=== PATIENT | male | born 1945 | race Caucasian/White ===

== ENCOUNTER 2016-11-13 08:33 | Inpatient (IN) | payer OTHER, MEDICARE ==
[2016-11-13] MEDS ORDERED: MIDAZOLAM 5 MG/5 ML VIAL ONE (08:46)
[2016-11-13 09:10] LABS: AUTOMATED BASOPHIL 0.3 % (0-2); AUTOMATED EOSINOPHIL 2.5 % (0-5); AUTOMATED LYMPH 6.2 % (17-44); AUTOMATED MONOCYTE 5.4 % (3-10); AUTOMATED NEUTROPHIL 85.6 % (45-76); MPV 7.8 fL (7.4-10.4)
--- NOTE | 2016-11-13 09:17 | DIRPT ---
CLINICAL DATA: Post CPR, intubated EXAM: PORTABLE CHEST 1 VIEW COMPARISON: Chest x-ray dated 03/02/2016. FINDINGS: Cardiomediastinal silhouette is stable in size and configuration. Median sternotomy wires appear intact and stable in alignment. Endotracheal tube has been placed with tip well positioned approximately 1 cm above the level of the [place]. Lungs are clear, perhaps mild interstitial edema on the right. No pleural effusions seen. No pneumothorax seen. No acute osseous abnormality. IMPRESSION: 1. Endotracheal tube well positioned with tip approximately 1 cm above the level of the [place]. 2. Probable mild interstitial edema. Lungs otherwise clear Electronically Signed By: Piotr Rashid M.D. On: 11/13/2016 09:15
[2016-11-13] MEDS ORDERED: NS 1,000 ML IV ONE (09:21)
[2016-11-13] MEDS ORDERED: SUCCINYLCHOLINE 20 MG/ML INJ 10 ML VIAL IV ONE (09:21)
[2016-11-13] MEDS ORDERED: ETOMIDATE 20 MG/10 ML VIAL IV ONE ×2 (09:21→10:00)
[2016-11-13 09:24] LABS: BLOOD UREA NITROGEN 19 MG/DL (9-20); CALC CORRECTED 9.1 MG/DL (8.4-10.2); CALCIUM 8.5 MG/DL (8.4-10.2); CALCULATED OSMOLALITY 273 MOs/Kg (270-290); CHLORIDE 102 mEq/L (98-107); GLUCOSE 137 MG/DL (70-99); SODIUM LEVEL 140 mEq/L (137-146); TOTAL PROTEIN 6.8 G/DL (6.3-8.2)
[2016-11-13 09:31] LABS: LEUKOCYTES/URINE 2+ (NEGATIVE); NITRITE/URINE NEG (NEGATIVE); URINE OCCULT BLOOD 1+ (NEG/TRACE); WBC/URINE TNTC (0-2)
[2016-11-13 09:33] LABS: PARTIAL THROMB. TIME 22.7 SEC (22-35); PT-INR 1.3
--- NOTE | 2016-11-13 09:34 | EDPRACDOC ---
- General Information Information Source: [facility], [facility] Mode Of Arrival: Ambulance - History of Present Illness Onset: 8am Medications/Treatment [facility] EMS Treatment BLS,EKG IV Yes HPI: PT PRESENTS TODAY VIA EMS FROM PRISON FOR SUDDEN COLLAPSE [facility] [facility]GER. REPORTEDLY , PT WAS EATING BREAKFAST WHEN IT WAS WITNESSED BY THE STAFF THAT PT SUDDENLY THREW HIS HANDS INTO THE AIR WHILE EATING BREAKFAST AND THEN COLLAPSED TO THE FLOOR. PT RESIDES THERE D/T DEMENTIA. CURRENTLY, PT HAS EDGAR AIRWAY PLACED WITH VSS. Duration: Since Injury Presyncopal phase:: Reports: Other Prehospital care: Reports: IV, Moniter <Edie Atkins - Last Filed: 11/13/16 10:23> - History of Present Illness Medications/Treatment [facility] EMS Treatment BLS,EKG IV Yes <Walt Vazquez - Last Filed: 11/13/16 10:54> - General Information Chief Complaint: CPR Stated Complaint: POST CPR Time Seen by Provider: 11/13/16 08:52 Home Medications: Home Medications Folic Acid 1 mg PO QAM 03/05/14 Sertraline HCl [Zoloft] 150 mg PO QAM 03/05/14 Aspirin (Enteric Coated) [Ecotrin] 81 mg PO DAILY 03/07/14 Azathioprine [Imuran] 50 mg PO QID 03/07/14 Calcium Carbonate + Vitamin D [Oscal with Vitamin D] 500 mg PO BID 03/07/14 Divalproex Sodium [DEPAKOTE-ER extend release] 250 mg PO DAILY 03/07/14 Insulin Glargine [Lantus Pen] 94 units SQ QHS 03/07/14 Metoprolol Tartrate [Lopressor] 6.25 mg PO BID 03/07/14 Prednisone [Deltasone, Orasone] 10 mg PO DAILY 03/07/14 Pyridostigmine [place] [Mestinon] 60 mg PO QID 03/07/14 Atorvastatin Calcium [Lipitor] 80 mg PO HS 12/16/14 Brimonidine Tartrate 1 drop OU BID 12/16/14 Cyclobenzaprine HCl [Flexeril] 10 mg PO HS 12/16/14 Dorzolamide HCl/Timolol Maleat [Dorzolamide-Timolol Eye Drops] 1 drop OS BID 07/22 [place]-3 Fatty Acids/Fish Oil [Fish Oil 1,000 mg Softgel] 2 cap PO TID 12/16/14 Tiotropium [Spiriva Handihaler] 1 puff INH DAILY 12/16/14 Cholecalciferol (Vitamin D3) [Vitamin D3] 2,000 unit PO DAILY 09/25/15 Memantine HCl [Namenda] 5 mg PO BID 09/25/15 Tamsulosin HCl [Flomax] 0.4 mg PO BID 09/25/15 Bethanechol [Urecholine] 25 mg PO BID 03/01/16 Insulin Regular, Human [Novolin R] 0 unit SQ .SLIDING SCALE 03/01/16 Loperamide HCl [Loperamide] 2 mg PO QID PRN 03/01/16 Lorazepam 0.5 mg PO Q4H PRN 03/01/16 Trazodone HCl 50 mg PO QHS PRN 03/01/16 Allergies/Adverse Reactions: Allergies Allergy/AdvReac Type Severity Reaction Status Date / Time No Known Allergies Allergy Verified 11/13/16 09:12 ED Past Medical History - History Reviewed Yes Nurses notes reviewed and agree except as marked - Patient Medical History Neurological History: Reports: Dementia (Vascular), Myasthenia Gravis Cardiac History: Reports: Hypertension, Heart Attack, CABG Respiratory History: Reports: COPD, Pulmonary Embolism GI/ History: Reports: Kidney Stones Musculoskeletal History: Reports: Arthritis, Gout Psychological History: Reports: Anxiety Systemic History: Reports: Diabetes. Denies: Cancer Surgical History: Reports: CABG, Tonsillectomy/Adnoidectomy - Family Medical History Reports: Diabetes (Brother), Stroke (Sister). Denies: Hypertension, Cancer, Cardiac Disorders - Social Medical History Smoking Status: Former smoker <Edie Atkins - Last Filed: 11/13/16 10:23> EDM Review of Systems - Review of Systems ROS Negative Except as Marked: Yes All systems reviewed and were negative except as marked ROS Unobtainable: Yes Review of systems cannot be obtained due to the patient's medical condition <Edie Atkins - Last Filed: 11/13/16 10:23> - Physical Exam Constitutional: Other (INTUBATED) Oriented to: Unable to Test Last recorded Vital Signs: Last Vital Signs Temp Pulse 83 11/13/16 09:10 Resp 16 11/13/16 09:10 BP 83/49 L 11/13/16 09:10 Pulse Ox 100 11/13/16 09:10 Oxygen Pulse Oxygen Saturation 100 O2 Device Oxygen Flow Rate Fraction of Inspired Oxygen ( 100 FIO2) - HEENT Head: Normal Eye Exam: Other (PUPILS AT 4MM, CURRENTLY NON-REACTIVE) Oropharynx: Other (EDGAR AIRWAY PLACED; WHEN REMOVED A LARGE BOLUS OF SAUSAGE FROM POSTERIOR PHARYNX; AIRWAY OTHERWISE CLEARED) - Respiratory/Cardiovascular Respiratory: Rhonchi, Other (PT CURRENTLY BEING BAGGED) Cardiovascular: Tachycardia, Other (ABRASION NOTED TO CHEST; NO BLEEDING OR DEFORMITY; LIKELY FROM FALL, BUT THIS IS UNCLEAR) - GI Palpation: Normal Tenderness: Non tender - Musculoskeletal Back: Other (ON BACK BOARD) Extremities: Normal - Integumentary Skin: Normal Lymphatics: Normal - Neurologic Cranial Nerve: Unable to Test Cerebellar: Unable to Test <Edie Atkins - Last Filed: 11/13/16 10:23> - Physical Exam Last recorded Vital Signs: Last Vital Signs Temp Pulse 91 11/13/16 09:57 Resp 16 11/13/16 09:57 BP 169/81 11/13/16 09:57 Pulse Ox 100 11/13/16 09:57 Oxygen Pulse Oxygen Saturation 100 O2 Device Vent Oxygen Flow Rate Fraction of Inspired Oxygen ( 100 FIO2) <Walt Vazquez - Last Filed: 11/13/16 10:54> ED Procedures - Intubation Informed of risks, benefits and alternatives described.: No (PT UNCONSCIOUS) Informed Consent Signed: Unable Indication: Airway Protection Intubation Date: 11/13/16 Time of Intubation: 08:45 Pre-oxygenation completed: Yes Number of Attempts: 1 Intubation Method: Oral Endotracheal Utilized: Mac4 Blade Tube Size (cm): 7.5 Position at Lip: 23 ETCO2 Detector Positive: Yes Breath Sounds after Intubation: equal Medications: Succinylcholine Intubation Complications: no complications Post Intubation Procedure CXR ordered?: Yes (PLACEMENT GOOD) <Edie Atkins - Last Filed: 11/13/16 10:23> - Results 11/13/16 09:00 11/13/16 09:00 WBC 16.2 xk/uL (3.8-10.8) H 11/13/16 09:00 RBC 4.89 xM/uL (4.70-6.10) 11/13/16 09:00 Hgb 13.9 g/dL (14.0-18.0) L 11/13/16 09:00 Hct 42.7 % (42-52) 11/13/16 09:00 MCV 87 fL (80-94) 11/13/16 09:00 MCH 28.6 pg (27-32) 11/13/16 09:00 MCHC 32.7 g/dl (33-36) L 11/13/16 09:00 RDW 14.4 % (11.5-14.5) 11/13/16 09:00 Plt Count 293 xk/uL (130-400) 11/13/16 09:00 MPV 7.8 fL (7.4-10.4) 11/13/16 09:00 Neut % (Auto) 85.6 % (45-76) H 11/13/16 09:00 Lymph % (Auto) 6.2 % (17-44) L 11/13/16 09:00 [place] % (Auto) 5.4 % (3-10) 11/13/16 09:00 Eos % (Auto) 2.5 % (0-5) 11/13/16 09:00 Baso % (Auto) 0.3 % (0-2) 11/13/16 09:00 Absolute Neuts (auto) 13.77 xk/uL (1.7-8.2) H 11/13/16 09:00 Absolute Lymphs (auto) 0.97 xk/uL (0.65-4.75) 11/13/16 09:00 Lactic Acid 3.2 mEq/L (0.7-2.1) H 11/13/16 09:00 Lab Results 11/13/16 11/13/16 09:00 09:00 WBC 16.2 H RBC 4.89 Hgb 13.9 L Hct 42.7 MCV 87 MCH 28.6 MCHC 32.7 L RDW 14.4 Plt Count 293 MPV 7.8 Neut % (Auto) 85.6 H Lymph % (Auto) 6.2 L [place] % (Auto) 5.4 Eos % (Auto) 2.5 Baso % (Auto) 0.3 Absolute Neuts (auto) 13.77 H Absolute Lymphs (auto) 0.97 Lactic Acid 3.2 H - EKG EKG #1 EKG Time: 08:39 -: Yes EKG interpreted by me Rate: bpm: 114 [place]: Normal Rhythm: ST, PVCs Block: None Hypertrophy: None ST: Normal Comparison: 03/01/16 EKG #2 EKG Time: 09:45 -: Yes EKG interpreted by me Rate: bpm: 87 [place]: Normal Rhythm: NSR Block: None Hypertrophy: None ST: Normal Comments: HYPERKALEMIA NOTED ON LABS, BUT NO NOTED PEAKED T WAVES <Edie Atkins - Last Filed: 11/13/16 10:23> - Results 11/13/16 09:00 11/13/16 09:00 WBC 16.2 xk/uL (3.8-10.8) H 11/13/16 09:00 RBC 4.89 xM/uL (4.70-6.10) 11/13/16 09:00 Hgb 13.9 g/dL (14.0-18.0) L 11/13/16 09:00 Hct 42.7 % (42-52) 11/13/16 09:00 MCV 87 fL (80-94) 11/13/16 09:00 MCH 28.6 pg (27-32) 11/13/16 09:00 MCHC 32.7 g/dl (33-36) L 11/13/16 09:00 RDW 14.4 % (11.5-14.5) 11/13/16 09:00 Plt Count 293 xk/uL (130-400) 11/13/16 09:00 MPV 7.8 fL (7.4-10.4) 11/13/16 09:00 Neut % (Auto) 85.6 % (45-76) H 11/13/16 09:00 Lymph % (Auto) 6.2 % (17-44) L 11/13/16 09:00 [place] % (Auto) 5.4 % (3-10) 11/13/16 09:00 Eos % (Auto) 2.5 % (0-5) 11/13/16 09:00 Baso % (Auto) 0.3 % (0-2) 11/13/16 09:00 Absolute Neuts (auto) 13.77 xk/uL (1.7-8.2) H 11/13/16 09:00 Absolute Lymphs (auto) 0.97 xk/uL (0.65-4.75) 11/13/16 09:00 PT 12.9 SEC (9.2-11.2) H 11/13/16 09:00 INR 1.3 11/13/16 09:00 APTT 22.7 SEC (22-35) 11/13/16 09:00 Puncture Site Left radial 11/13/16 10:00 pH 7.260 pH UNITS (7.35-7.45) L 11/13/16 10:00 pCO2 59.0 mmHg (35-45) H 11/13/16 10:00 pO2 111.0 mmHg (80-100) H 11/13/16 10:00 HCO3 26.5 MMOL/L (22-26) H 11/13/16 10:00 Total CO2 28.3 MMOL/L (23-27) H 11/13/16 10:00 Base Excess -1.7 (+/- 2) 11/13/16 10:00 Vent Mode Ac rate 16 RATE 11/13/16 10:00 FiO2 % 100% 11/13/16 10:00 Tidal Volume 500 ML 11/13/16 10:00 Specimen Drawn By Kasgl 11/13/16 10:00 Sodium 140 mEq/L (137-146) 11/13/16 09:00 Potassium 7.2 mEq/L (3.5-5.1) H* 11/13/16 09:00 Chloride 102 mEq/L (98-107) 11/13/16 09:00 Carbon Dioxide 34 mMOL/L (22-33) H 11/13/16 09:00 Anion Gap 11 mEq/L (8-16) 11/13/16 09:00 BUN 19 MG/DL (9-20) 11/13/16 09:00 Creatinine 1.10 MG/DL (0.66-1.25) 11/13/16 09:00 Estimated GFR (MDRD) > 60 mL/min (>=60) 11/13/16 09:00 Glucose 137 MG/DL (70-99) H 11/13/16 09:00 Calculated Osmolality 273 MOs/Kg (270-290) 11/13/16 09:00 Lactic Acid 3.2 mEq/L (0.7-2.1) H 11/13/16 09:00 Calcium 8.5 MG/DL (8.4-10.2) 11/13/16 09:00 Corrected Calcium 9.1 MG/DL (8.4-10.2) 11/13/16 09:00 Total Bilirubin 0.7 MG/DL (0.2-1.3) 11/13/16 09:00 AST 108 IU/L (17-59) H 11/13/16 09:00 ALT 91 IU/L (21-72) H 11/13/16 09:00 Alkaline Phosphatase 64 IU/L (50-160) 11/13/16 09:00 Troponin I 0.02 ng/mL (<.04) 11/13/16 09:00 Total Protein 6.8 G/DL (6.3-8.2) 11/13/16 09:00 Albumin 3.4 G/DL (3.5-5.0) L 11/13/16 09:00 Urine Color Yellow 11/13/16 09:14 Urine Clarity Cldy 11/13/16 09:14 Urine pH 6.0 (5.0-8.0) 11/13/16 09:14 Ur Specific [place] 1.015 (1.003-1.035) 11/13/16 09:14 Urine Protein 2+ (NEG/TRACE) H 11/13/16 09:14 Urine Glucose (UA) 2+ (NEGATIVE) 11/13/16 09:14 Urine Ketones Neg (NEGATIVE) 11/13/16 09:14 Urine Occult Blood 1+ (NEG/TRACE) H 11/13/16 09:14 Urine Nitrite Neg (NEGATIVE) 11/13/16 09:14 Urine Bilirubin Neg (NEGATIVE) 11/13/16 09:14 Urine Urobilinogen <2.0 MG/DL (0-1) 11/13/16 09:14 Ur Leukocyte Esterase 2+ (NEGATIVE) H 11/13/16 09:14 Urine RBC 10-20 (0-2) H 11/13/16 09:14 Urine WBC Tntc (0-2) H 11/13/16 09:14 Urine WBC Clumps None (NONE) 11/13/16 09:14 Urine Bacteria 1+ (NEG/FEW) H 11/13/16 09:14 Urine Mucus Occ (NEG/OCC) 11/13/16 09:14 Urine Yeast Few (NONE) H 11/13/16 09:14 Lab Results 11/13/16 11/13/16 11/13/16 10:00 09:14 09:00 WBC RBC Hgb Hct MCV MCH MCHC RDW Plt Count MPV Neut % (Auto) Lymph % (Auto) [place] % (Auto) Eos % (Auto) Baso % (Auto) Absolute Neuts (auto) Absolute Lymphs (auto) PT 12.9 H INR 1.3 APTT 22.7 Puncture Site Left radial pH 7.260 L pCO2 59.0 H pO2 111.0 H HCO3 26.5 H Total CO2 28.3 H Base Excess -1.7 Vent Mode Ac rate 16 FiO2 % 100% Tidal Volume 500 Specimen Drawn By Kasgl Sodium Potassium Chloride Carbon Dioxide Anion Gap BUN Creatinine Estimated GFR (MDRD) Glucose Calculated Osmolality Lactic Acid Calcium Corrected Calcium Total Bilirubin AST ALT Alkaline Phosphatase Troponin I Total Protein Albumin Urine Color Yellow Urine Clarity Cldy Urine pH 6.0 Ur Specific [place] 1.015 Urine Protein 2+ H Urine Glucose (UA) 2+ Urine Ketones Neg Urine Occult Blood 1+ H Urine Nitrite Neg Urine Bilirubin Neg Urine Urobilinogen <2.0 Ur Leukocyte Esterase 2+ H Urine RBC 10-20 H Urine WBC Tntc H Urine WBC Clumps None Urine Bacteria 1+ H Urine Mucus Occ Urine Yeast Few H 11/13/16 11/13/16 11/13/16 09:00 09:00 09:00 WBC 16.2 H RBC 4.89 Hgb 13.9 L Hct 42.7 MCV 87 MCH 28.6 MCHC 32.7 L RDW 14.4 Plt Count 293 MPV 7.8 Neut % (Auto) 85.6 H Lymph % (Auto) 6.2 L [place] % (Auto) 5.4 Eos % (Auto) 2.5 Baso % (Auto) 0.3 Absolute Neuts (auto) 13.77 H Absolute Lymphs (auto) 0.97 PT INR APTT Puncture Site pH pCO2 pO2 HCO3 Total CO2 Base Excess Vent Mode FiO2 % Tidal Volume Specimen Drawn By Sodium 140 Potassium 7.2 H* Chloride 102 Carbon Dioxide 34 H Anion Gap 11 BUN 19 Creatinine 1.10 Estimated GFR (MDRD) > 60 Glucose 137 H Calculated Osmolality 273 Lactic Acid 3.2 H Calcium 8.5 Corrected Calcium 9.1 Total Bilirubin 0.7 AST 108 H ALT 91 H Alkaline Phosphatase 64 Troponin I 0.02 Total Protein 6.8 Albumin 3.4 L Urine Color Urine Clarity Urine pH Ur Specific [place] Urine Protein Urine Glucose (UA) Urine Ketones Urine Occult Blood Urine Nitrite Urine Bilirubin Urine Urobilinogen Ur Leukocyte Esterase Urine RBC Urine WBC Urine WBC Clumps Urine Bacteria Urine Mucus Urine Yeast <Walt Vazquez - Last Filed: 11/13/16 10:54> - Departure Disposition: Admit IP To This Hospital <Edie Atkins - Last Filed: 11/13/16 10:23> - Departure Yes I personally saw and evaluated the patient. Disposition: Admit IP To This Hospital Decision to Admit Time: 10:54 Decision to admit date: 11/13/16 Decision to admit: from ED - Physician Consulted Hospitalist Time Called: 10:54 Provider Called: Remington Bernardo Time Thermoscrew Operator Returned Call: 10:54 <Walt Vazquez - Last Filed: 11/13/16 10:54> - Departure Condition: Critical Final Diagnosis: Cardiac arrest with successful resuscitation, Hyperkalemia, Respiratory arrest , INTUBATION BY TRAY Aspiration into airway Qualifiers: Encounter type: initial encounter Qualified Code(s): T17.908A - Unspecified foreign body in respiratory tract, part unspecified causing other injury, initial encounter
[2016-11-13] MEDS ORDERED: DEXTROSE 25 GM/50 ML PFS IV ONE (09:36)
[2016-11-13] MEDS ORDERED: CALCIUM CHLORIDE 1000 MG/10 ML (10%) PFS IV ONE (09:44)
[2016-11-13] MEDS ORDERED: REGULAR INSULIN 100 UNITS/ML - 3 ML VIAL IV ONE (09:46)
--- NOTE | 2016-11-13 09:52 | DIRPT ---
CLINICAL DATA: 71-year-old male with altered mental status following aspiration during breakfast at the custodial earlier today EXAM: CT HEAD WITHOUT CONTRAST TECHNIQUE: Contiguous axial images were obtained from the base of the skull through the vertex without intravenous contrast. COMPARISON: Prior head CT 09/24/2014 FINDINGS: Negative for acute intracranial hemorrhage, acute infarction, mass, mass effect, hydrocephalus or midline shift. [place]-white differentiation is preserved throughout. Focal encephalomalacia left MCA territory consistent with prior infarct. No evidence of residual blood products. Extensive confluent periventricular, subcortical and deep white matter hypoattenuation most consistent with chronic microvascular ischemic white matter disease. No focal soft tissue or calvarial abnormality. Normal aeration of the visualized mastoid air cells and paranasal sinuses. Atherosclerotic calcifications present in the bilateral cavernous carotid arteries. IMPRESSION: 1. No acute intracranial abnormality. 2. Similar degree of advanced chronic microvascular ischemic white matter disease 3. Remote left MCA territory infarct. No evidence of residual blood products. Electronically Signed By: Malcolm Damon M.D. On: 11/13/2016 09:50
[2016-11-13] MEDS ORDERED: SUCCINYLCHOLINE 20 MG/1 ML INJ 10 ML MDV IV ONE (10:00)
[2016-11-13] MEDS ORDERED: CALCIUM GLUCONATE 4.65 MEQ in NS 100 ML IV ONE (10:00)
[2016-11-13 10:03] LABS: ALLEN'S TEST PASS; BEb -1.7 (+/- 2); TCO2 28.3 MMOL/L (23-27)
[2016-11-13 10:04] LABS: ABG Draw Site Left Radial; MODE AC RATE 16 RATE
[2016-11-13] MEDS ORDERED: LOPERAMIDE HCL 2 MG PO PRN (11:26)
[2016-11-13] MEDS ORDERED: FENTANYL 100 MCG/2 ML VIAL IV PRN (11:29)
[2016-11-13] MEDS ORDERED: LORAZEPAM 2 MG/ML VIAL IV PRN (11:29)
[2016-11-13] MEDS ORDERED: CHAPSTICK LIP BALM TOP PRN (11:29)
[2016-11-13] MEDS ORDERED: LOPERAMIDE 2 MG CAP PO PRN (11:47)
[2016-11-13] MEDS ORDERED: DORZOLAMIDE/TIMOLOL OPHTH SOLN 10 ML OS SCH (12:00)
[2016-11-13] MEDS ORDERED: BRIMONIDINE 0.2% OU SCH (12:00)
[2016-11-13 12:24] LABS: BLOOD UREA NITROGEN 19 MG/DL (9-20); CALCIUM 9.8 MG/DL (8.4-10.2); CALCULATED OSMOLALITY 279 MOs/Kg (270-290); CHLORIDE 106 mEq/L (98-107); GLUCOSE 103 MG/DL (70-99); SODIUM LEVEL 144 mEq/L (137-146)
[2016-11-13] MEDS: FENTANYL 2,500 MCG/250 ML BAG IV SCH (12:46)
[2016-11-13] MEDS: NS 1,000 ML IV SCH (12:47)
[2016-11-13] MEDS: PIPERACILLIN AND TAZOBACTAM 4.5 GM in D5W 100 ML IV SCH ×3 (12:47→22:36)
[2016-11-13] MEDS: METHYLPREDNISOLONE 125 MG/2 ML VIAL IV SCH ×3 (12:50→22:35)
[2016-11-13] MEDS: PANTOPRAZOLE 40 MG VIAL IV SCH (12:50)
[2016-11-13] MEDS: PYRIDOSTIGMINE 60 MG TAB PO SCH ×3 (13:06→22:34)
[2016-11-13] MEDS: CHOLECALCIFEROL 1000 UNITS TAB PO SCH (13:06)
[2016-11-13] MEDS: AZATHIOPRINE 50 MG TAB PO SCH ×3 (13:06→22:34)
[2016-11-13] MEDS: ACETAMINOPHEN 325 MG/TAB TABLET PO PRN (13:12)
[2016-11-13] MEDS: Levofloxacin 750 mg/150 ml D5W 750 MG/150 ML RTU IV SCH (13:17)
[2016-11-13 13:20] LABS: ABG Draw Site Left Radial; ALLEN'S TEST PASS; BEb 2.2 (+/- 2); TCO2 29.2 MMOL/L (23-27)
[2016-11-13 13:21] LABS: MODE AC 16 RATE
--- NOTE | 2016-11-13 15:15 | HISTPHYS ---
- Chief Complaint resp. arrest - History of Present Illness 71 yowm full-time resident of intermediate facility brought to emergency room after sustaining respiratory and subsequently cardiac arrest. According fpc information while eating sausage links for breakfast patient has choked became cyanotic call and collapsed to the floor. EMS was called Miguelito airway was placed. Patient has subsequently lost pulse and required chest compressions. Once in ED large foot bolus/such sussage link was removed from upper airways and throat he was intubated and mechanically ventilated. He has required 100% FiO2, after intubation his hemodynamics have improved. - Medical History Cardiac History: Reports: Coronary Artery Disease, Hypertension, Heart Attack, CABG, Valvular Heart Disease Respiratory History: Reports: COPD, Pneumonia, Pulmonary Embolism GI/ History: Reports: Renal Failure, Kidney Stones, Gastroesophageal Reflux, BPH Musculoskeletal History: Reports: Arthritis, Gout, Osteoarthritis Systemic History: Reports: No Significant History Neurological History: Reports: Dementia (Vascular) Psychological History: Reports: Depression, Anxiety - Surgical History Reports: CABG, Tonsillectomy/Adnoidectomy - Medictions/Allergies Allergies No Known Allergies Allergy (Verified 11/13/16 09:12) Current Medication List: Reviewed Home Medications Folic Acid 1 mg PO QAM 03/05/14 Sertraline HCl [Zoloft] 150 mg PO QAM 03/05/14 Aspirin (Enteric Coated) [Ecotrin] 81 mg PO DAILY 03/07/14 Azathioprine [Imuran] 50 mg PO QID 03/07/14 Calcium Carbonate + Vitamin D [Oscal with Vitamin D] 500 mg PO BID 03/07/14 Divalproex Sodium [DEPAKOTE-ER extend release] 250 mg PO DAILY 03/07/14 Insulin Glargine [Lantus Pen] 94 units SQ QHS 03/07/14 Metoprolol Tartrate [Lopressor] 6.25 mg PO BID 03/07/14 Prednisone [Deltasone, Orasone] 10 mg PO DAILY 03/07/14 Pyridostigmine [place] [Mestinon] 60 mg PO QID 03/07/14 Atorvastatin Calcium [Lipitor] 80 mg PO HS 12/16/14 Brimonidine Tartrate 1 drop OU BID 12/16/14 Cyclobenzaprine HCl [Flexeril] 10 mg PO HS 12/16/14 Dorzolamide HCl/Timolol Maleat [Dorzolamide-Timolol Eye Drops] 1 drop OS BID 07/22 [place]-3 Fatty Acids/Fish Oil [Fish Oil 1,000 mg Softgel] 2 cap PO TID 12/16/14 Tiotropium [Spiriva Handihaler] 1 puff INH DAILY 12/16/14 Cholecalciferol (Vitamin D3) [Vitamin D3] 2,000 unit PO DAILY 09/25/15 Memantine HCl [Namenda] 5 mg PO BID 09/25/15 Tamsulosin HCl [Flomax] 0.4 mg PO BID 09/25/15 Bethanechol [Urecholine] 25 mg PO BID 03/01/16 Insulin Regular, Human [Novolin R] 0 unit SQ .SLIDING SCALE 03/01/16 Loperamide HCl [Loperamide] 2 mg PO QID PRN 03/01/16 Lorazepam 0.5 mg PO Q4H PRN 03/01/16 Trazodone HCl 50 mg PO QHS PRN 03/01/16 - Family History Reports: Diabetes (Brother), Stroke (Sister). Denies: Hypertension, Cancer, Cardiac Disorders - Social History Travel Outside of [place] in the Last 3 Months?: No Lives: in Assisted/SNF Smoking Status: Former smoker - Review of Systems Yes Review of systems cannot be obtained due to the patient's medical condition (being intubated) Constitutional: Chills, Diaphoresis, Weakness Eyes: No Symptoms Reported Ears: No Symptoms Reported Nose: No Symptoms Reported Mouth: No Symptoms Reported Throat/Neck: No Symptoms Reported Respiratory: Cough, Shortness of Breath, Wheezing, Sputum, Dyspnea Cardiovascular: No Symptoms Reported Gastrointestinal: Constipation, Heartburn Genitourinary: Nocturia Neurological: Weakness Musculoskeletal:: Arthritis Integumentary: No Symptoms Reported Allergic/Immunologic: No Symptoms Reported Hematologic: No Symptoms Reported Endocrine: No Symptoms Reported - Physical Exam Vital Signs: Initial Vitals Pulse Rate 101 11/13/16 08:39 Respiratory Rate 21 11/13/16 08:39 Blood Pressure 136/77 11/13/16 08:39 Pulse Oxygen Saturation 100 11/13/16 08:39 - Focused CV Perfusion Exam Vital Signs: Last Vital Signs Temp 100.2 F 11/13/16 14:12 Pulse 96 11/13/16 15:06 Resp 30 H 11/13/16 12:00 BP 121/57 L 11/13/16 13:15 Pulse Ox 99 11/13/16 13:15 - Diagnostic Findings Allergies No Known Allergies Allergy (Verified 11/13/16 09:12) 11/13/16 09:00 11/13/16 12:00 Abnormal Lab Results 11/13/16 11/13/16 11/13/16 09:00 09:00 09:00 WBC 16.2 H Hgb 13.9 L MCHC 32.7 L Neut % (Auto) 85.6 H Lymph % (Auto) 6.2 L Absolute Neuts (auto) 13.77 H PT pH pCO2 pO2 HCO3 Total CO2 Base Excess Potassium 7.2 H* Carbon Dioxide 34 H Glucose 137 H Lactic Acid 3.2 H AST 108 H ALT 91 H Albumin 3.4 L Urine Protein Urine Occult Blood Ur Leukocyte Esterase Urine RBC Urine WBC Urine Bacteria Urine Yeast 11/13/16 11/13/16 11/13/16 09:00 09:14 10:00 WBC Hgb MCHC Neut % (Auto) Lymph % (Auto) Absolute Neuts (auto) PT 12.9 H pH 7.260 L pCO2 59.0 H pO2 111.0 H HCO3 26.5 H Total CO2 28.3 H Base Excess Potassium Carbon Dioxide Glucose Lactic Acid AST ALT Albumin Urine Protein 2+ H Urine Occult Blood 1+ H Ur Leukocyte Esterase 2+ H Urine RBC 10-20 H Urine WBC Tntc H Urine Bacteria 1+ H Urine Yeast Few H 11/13/16 11/13/16 12:00 13:15 WBC Hgb MCHC Neut % (Auto) Lymph % (Auto) Absolute Neuts (auto) PT pH pCO2 46.0 H pO2 HCO3 27.8 H Total CO2 29.2 H Base Excess 2.2 H Potassium Carbon Dioxide Glucose 103 H Lactic Acid AST ALT Albumin Urine Protein Urine Occult Blood Ur Leukocyte Esterase Urine RBC Urine WBC Urine Bacteria Urine Yeast Last Vital Signs Temp 100.2 F 11/13/16 14:12 Pulse 95 11/13/16 15:13 Resp 17 11/13/16 15:13 BP 116/58 L 11/13/16 15:13 Pulse Ox 100 11/13/16 15:13 Home Medications Folic Acid 1 mg PO QA 03/05/14 Sertraline HCl [Zoloft] 150 mg PO QA 03/05/14 Aspirin (Enteric Coated) [Ecotrin] 81 mg PO DAILY 03/07/14 Azathioprine [Imuran] 50 mg PO QID 03/07/14 Calcium Carbonate + Vitamin D [Oscal with Vitamin D] 500 mg PO BID 03/07/14 Divalproex Sodium [DEPAKOTE-ER extend release] 250 mg PO DAILY 03/07/14 Insulin Glargine [Lantus Pen] 94 units SQ QHS 03/07/14 Metoprolol Tartrate [Lopressor] 6.25 mg PO BID 03/07/14 Prednisone [Deltasone, Orasone] 10 mg PO DAILY 03/07/14 Pyridostigmine [place] [Mestinon] 60 mg PO QID 03/07/14 Atorvastatin Calcium [Lipitor] 80 mg PO HS 12/16/14 Brimonidine Tartrate 1 drop OU BID 12/16/14 Cyclobenzaprine HCl [Flexeril] 10 mg PO HS 12/16/14 Dorzolamide HCl/Timolol Maleat [Dorzolamide-Timolol Eye Drops] 1 drop OS BID 07/22 [place]-3 Fatty Acids/Fish Oil [Fish Oil 1,000 mg Softgel] 2 cap PO TID 12/16/14 Tiotropium [Spiriva Handihaler] 1 puff INH DAILY 12/16/14 Cholecalciferol (Vitamin D3) [Vitamin D3] 2,000 unit PO DAILY 09/25/15 Memantine HCl [Namenda] 5 mg PO BID 09/25/15 Tamsulosin HCl [Flomax] 0.4 mg PO BID 09/25/15 Bethanechol [Urecholine] 25 mg PO BID 03/01/16 Insulin Regular, Human [Novolin R] 0 unit SQ .SLIDING SCALE 03/01/16 Loperamide HCl [Loperamide] 2 mg PO QID PRN 03/01/16 Lorazepam 0.5 mg PO Q4H PRN 03/01/16 Trazodone HCl 50 mg PO QHS PRN 03/01/16 - Assessment (1) Acute respiratory failure with hypoxia J96.01 - ACUTE RESPIRATORY FAILURE WITH HYPOXIA Acute Present on Admission: Yes Continue vent support, monitor chest x-ray and ABG (2) Aspiration pneumonia J69.0 - PNEUMONITIS DUE TO INHALATION OF FOOD AND VOMIT Acute Present on Admission: Yes Qualifiers: Aspiration pneumonia type: unspecified Lung location: unspecified part of lung Patient will receive broad-spectrum antibiotics in the form of Zosyn Levaquin. Will monitor cultures and adjust antibiotics accordingly. (3) Cardiac arrest with successful resuscitation I46.9 - CARDIAC ARREST, CAUSE UNSPECIFIED Acute Present on Admission: Yes Monitor hemodynamics in ICU setting. (4) Hyperkalemia E87.5 - HYPERKALEMIA Acute Present on Admission: Yes Follow hyperkalemia protocol then reassess potassium level (5) Dementia F03.90 - UNSPECIFIED DEMENTIA WITHOUT BEHAVIORAL DISTURBANCE Acute Qualifiers: Dementia type: Alzheimer's disease Dementia behavioral disturbance: with behavioral disturbance Continue supportive care. (6) GERD (gastroesophageal reflux disease) K21.9 - GASTRO-ESOPHAGEAL REFLUX DISEASE WITHOUT ESOPHAGITIS Chronic Present on Admission: Yes Qualifiers: Esophagitis presence: without esophagitis Qualified Code(s): K21.9 - Gastro -esophageal reflux disease without esophagitis Continue PPI (7) Myasthenia gravis Chronic Present on Admission: Yes Continue high-dose steroids. (8) Dysphagia R13.10 - DYSPHAGIA, UNSPECIFIED Chronic Present on Admission: Yes Qualifiers: Dysphagia type: oropharyngeal phase Qualified Code(s): R13.12 - Dysphagia, oropharyngeal phase Speech evaluation therapy once extubated (9) DM2 (diabetes mellitus, type 2) E11.9 - TYPE 2 DIABETES MELLITUS WITHOUT COMPLICATIONS Chronic Present on Admission: Yes Qualifiers: Diabetes mellitus complication status: with neurologic complications Monitor blood sugar, cover with sliding scale insulin Case Care Discussed with: Patient, Nursing Staff, Respiratory Therapy, Matte Cutter Total Time: 90 min . Critical Care: Yes
[2016-11-13] MEDS: ENOXAPARIN 40 MG/0.4 ML PFS SQ SCH (17:08)
[2016-11-13] MEDS: CHLORHEXIDINE 0.12% ORAL SOLN 15 ML PO SCH (17:09)
[2016-11-13] MEDS: ATORVASTATIN 80 MG TAB PO SCH (22:34)
[2016-11-13] MEDS: DORZOLAMIDE/TIMOLOL OPHTH SOLN 10 ML OS SCH (22:34)
[2016-11-13] MEDS: MEMANTINE 5 MG TAB PO SCH (22:34)
[2016-11-13] MEDS: BRIMONIDINE 0.2% OU SCH (22:35)
[2016-11-13] MEDS: CHLORHEXIDINE (HIBICLENS) 4 OZ BOTTLE TOP SCH (23:03)
[2016-11-14] MEDS: NS 1,000 ML IV SCH ×2 (01:06→13:50)
[2016-11-14] MEDS: FENTANYL 2,500 MCG/250 ML BAG IV SCH ×2 (01:08→11:10)
[2016-11-14 05:04] LABS: MPV 8.7 fL (7.4-10.4)
[2016-11-14 05:14] LABS: BLOOD UREA NITROGEN 26 MG/DL (9-20); CALCIUM 8.5 MG/DL (8.4-10.2); CALCULATED OSMOLALITY 278 MOs/Kg (270-290); CHLORIDE 105 mEq/L (98-107); GLUCOSE 232 MG/DL (70-99); SODIUM LEVEL 138 mEq/L (137-146)
[2016-11-14 05:52] LABS: SEG NEUTROPHIL 92 % (45-76)
[2016-11-14] MEDS: METHYLPREDNISOLONE 125 MG/2 ML VIAL IV SCH ×3 (06:15→17:08)
[2016-11-14] MEDS: CHLORHEXIDINE 0.12% ORAL SOLN 15 ML PO SCH (06:16)
[2016-11-14] MEDS: PIPERACILLIN AND TAZOBACTAM 4.5 GM in D5W 100 ML IV SCH ×3 (06:16→17:07)
[2016-11-14] MEDS ORDERED: Magnesium Sulfate 1 gm/D5W 1 GM/100 ML RTU IV ONE (07:45)
--- NOTE | 2016-11-14 08:10 | DIRPT ---
CLINICAL DATA: Patient with respiratory distress. EXAM: PORTABLE CHEST 1 VIEW COMPARISON: Chest radiograph 11/13/2016. FINDINGS: ETT terminates in mid trachea. Multiple monitoring leads overlie the patient. Pacer pad overlies right wendy thorax. Stable cardiac and mediastinal contours status post median sternotomy. Heterogeneous opacities right mid lung. No pleural effusion or pneumothorax. IMPRESSION: ET tube terminates in mid trachea. Heterogeneous opacities in the right mid lung may represent atelectasis, aspiration or infection. Electronically Signed By: Dragan Vallecillo M.D. On: 11/14/2016 08:07
[2016-11-14] MEDS: PYRIDOSTIGMINE 60 MG TAB PO SCH ×4 (08:12→21:51)
[2016-11-14] MEDS: SERTRALINE HCL 50 MG TAB PO SCH (08:12)
[2016-11-14] MEDS: AZATHIOPRINE 50 MG TAB PO SCH ×4 (08:13→21:51)
[2016-11-14] MEDS: BRIMONIDINE 0.2% OU SCH ×2 (08:13→21:07)
[2016-11-14] MEDS: DORZOLAMIDE/TIMOLOL OPHTH SOLN 10 ML OS SCH ×2 (08:13→21:06)
[2016-11-14] MEDS: CHOLECALCIFEROL 1000 UNITS TAB PO SCH (08:13)
[2016-11-14] MEDS: MEMANTINE 5 MG TAB PO SCH ×2 (08:13→21:51)
--- NOTE | 2016-11-14 08:25 | GENMEDPROG ---
Chief Complaint: Status post respiratory arrest Subjective Note: Doing well on the ventilator this morning. He is awake. No acute events overnight, discussed with nursing staff at the bedside this morning. Notes Reviewed: Yes Events from last night noted and discussed with Clinical Staff Current Medication List: Reviewed Currently: Denies: Cough, Wheezing, Abdominal Pain, Fever/Chills, Chest Pain DVT Prophylaxis: Yes - Physical Examination Vital Signs and I&O: Last Vital Signs Temp 100.5 F 11/13/16 19:00 Pulse 69 11/14/16 07:20 Resp 15 11/14/16 06:00 BP 104/56 L 11/14/16 06:00 Pulse Ox 98 11/14/16 06:00 Oxygen Pulse Oxygen Saturation 98 O2 Device Vent Oxygen Flow Rate Fraction of Inspired Oxygen ( 80 FIO2) Intake & Output 11/12/16 11/13/16 11/14/16 11/15/16 06:59 06:59 06:59 06:59 Intake Total 3114 Output Total 1175 Balance 1939 Patient's weight 86.001 kg General: Alert, Mild distress HEENT: EOMI (Sclera white) Neck: Normal Trachea alignment, Normal inspection Lymphatics: Normal Respiratory: Rhonchi, Other (PT CURRENTLY BEING BAGGED) Cardiovascular: Regular rate, No Gallops,Rubs/Murmurs GI: Normal bowel sounds, Soft, Non tender (non distended) Extremities/Musculoskeletal: Other (Normal Tone). negative: Edema, Cyanosis Patient is intubated. Awake but not following commands. His baseline mental status is unclear. Lab/DI/Studies Reviewed: Laboratory Tests 11/14/16 11/14/16 04:35 04:35 WBC 17.6 H Hgb 11.8 L D Potassium 4.6 BUN 26 H Creatinine 1.00 Magnesium 1.50 L - Assessment (1) Acute respiratory failure with hypoxia Acute J96.01 - ACUTE RESPIRATORY FAILURE WITH HYPOXIA Comment/Plan: Respiratory failure due to severe aspiration leading to arrest. Continue ventilator support today. Continue empiric IV antibiotics Levaquin and Zosyn for aspiration. Discussed with nursing at the bedside who will get in touch with respiratory therapy. Will wean down oxygen as able, and consider CPAP trial later this morning to exercise the patient. Do not intend on extubating today. (2) Aspiration into airway Acute T17.908A - UNSP FB IN RESP TRACT, PART UNSP CAUSING OTH INJURY, INIT Qualifiers: Encounter type: initial encounter Qualified Code(s): T17.908A - Unspecified foreign body in respiratory tract, part unspecified causing other injury, initial encounter (3) Aspiration pneumonia Acute J69.0 - PNEUMONITIS DUE TO INHALATION OF FOOD AND VOMIT Qualifiers: Aspiration pneumonia type: unspecified Lung location: unspecified part of lung Comment/Plan: Patient will receive broad-spectrum antibiotics in the form of Zosyn Levaquin. Will monitor cultures and adjust antibiotics accordingly. (4) Cardiac arrest with successful resuscitation Acute I46.9 - CARDIAC ARREST, CAUSE UNSPECIFIED Comment/Plan: Monitor hemodynamics in ICU setting. Currently hemodynamically stable. (5) Dementia Acute F03.90 - UNSPECIFIED DEMENTIA WITHOUT BEHAVIORAL DISTURBANCE Qualifiers: Dementia type: Alzheimer's disease Dementia behavioral disturbance: with behavioral disturbance Comment/Plan: Continue supportive care, he is awake and calm this morning. Not following commands, but is moving all extremities and looking around the room spontaneously. His baseline mental status is unclear. Dementia may be playing a role in his not following specific commands. (6) Hyperkalemia Acute E87.5 - HYPERKALEMIA Comment/Plan: Treated per hyperkalemia protocol, now improved and normal range this morning. (7) DM2 (diabetes mellitus, type 2) Chronic E11.9 - TYPE 2 DIABETES MELLITUS WITHOUT COMPLICATIONS Qualifiers: Diabetes mellitus complication status: with neurologic complications Comment/Plan: Monitor blood sugar, cover with sliding scale insulin (8) GERD (gastroesophageal reflux disease) Chronic K21.9 - GASTRO-ESOPHAGEAL REFLUX DISEASE WITHOUT ESOPHAGITIS Qualifiers: Esophagitis presence: without esophagitis Qualified Code(s): K21.9 - Gastro -esophageal reflux disease without esophagitis Comment/Plan: Continue PPI (9) Myasthenia gravis Chronic Comment/Plan: Continue high-dose steroids. (10) CVA (cerebral vascular accident) Acute I63.9 - CEREBRAL INFARCTION, UNSPECIFIED - Plan In summary this patient is acutely and critically ill. The patient requires treatment of vital organ failure and measures to prevent further life- threatening deterioration of the above conditions. I personally reviewed and ordered lab testing, as well as imaging. I reviewed old medical records from previous hospitalizations as available, and spent the time mentioned below in critical care of this patient including counseling and coordination of care. Case Care Discussed with: Nursing Staff Total Time: 65
[2016-11-14] MEDS ORDERED: Non-Formulary Medication ITEM (Cholecalciferol (Vitamin D3) [Vitamin D3] 2,000 UNIT) PO SCH (09:00)
[2016-11-14] MEDS: PANTOPRAZOLE 40 MG VIAL IV SCH (12:05)
[2016-11-14] MEDS ORDERED: GLUCAGON 1 MG VIAL SQ PRN (13:10)
[2016-11-14] MEDS ORDERED: DEXTROSE 25 GM/50 ML PFS IV PRN (13:10)
[2016-11-14] MEDS ORDERED: GLUCOSE (ORAL GEL) 15 GM TUBE PO PRN (13:10)
[2016-11-14] MEDS: Levofloxacin 750 mg/150 ml D5W 750 MG/150 ML RTU IV SCH (13:50)
[2016-11-14] MEDS ORDERED: Vaccine Screening Complete SCH (17:00)
[2016-11-14] MEDS: ENOXAPARIN 40 MG/0.4 ML PFS SQ SCH (17:07)
[2016-11-14] MEDS: REGULAR INSULIN 100 UNITS/ML - 3 ML VIAL SQ SCH ×2 (17:49→21:04)
[2016-11-14] MEDS: ATORVASTATIN 80 MG TAB PO SCH (21:51)
[2016-11-15] MEDS: METHYLPREDNISOLONE 125 MG/2 ML VIAL IV SCH ×3 (00:15→18:34)
[2016-11-15] MEDS: PIPERACILLIN AND TAZOBACTAM 4.5 GM in D5W 100 ML IV SCH ×5 (00:16→23:46)
[2016-11-15] MEDS: NS 1,000 ML IV SCH ×2 (02:15→12:53)
[2016-11-15] MEDS: CHLORHEXIDINE (HIBICLENS) 4 OZ BOTTLE TOP SCH ×2 (05:16→20:36)
[2016-11-15 05:20] LABS: MPV 8.5 fL (7.4-10.4)
[2016-11-15 05:34] LABS: BLOOD UREA NITROGEN 38 MG/DL (9-20); CALCIUM 8.3 MG/DL (8.4-10.2); CALCULATED OSMOLALITY 287 MOs/Kg (270-290); CHLORIDE 108 mEq/L (98-107); GLUCOSE 217 MG/DL (70-99); SODIUM LEVEL 141 mEq/L (137-146)
[2016-11-15] MEDS: REGULAR INSULIN 100 UNITS/ML - 3 ML VIAL SQ SCH ×5 (05:59→23:42)
[2016-11-15] MEDS: AZATHIOPRINE 50 MG TAB PO SCH ×4 (07:57→20:54)
[2016-11-15] MEDS: PYRIDOSTIGMINE 60 MG TAB PO SCH ×4 (07:57→20:54)
[2016-11-15] MEDS ORDERED: PREDNISONE 20 MG TAB PO SCH (08:00)
[2016-11-15] MEDS: MEMANTINE 5 MG TAB PO SCH ×2 (08:01→20:55)
[2016-11-15] MEDS: SERTRALINE HCL 50 MG TAB PO SCH (08:02)
[2016-11-15] MEDS: BRIMONIDINE 0.2% OU SCH ×2 (08:06→20:51)
[2016-11-15] MEDS: DORZOLAMIDE/TIMOLOL OPHTH SOLN 10 ML OS SCH ×2 (08:11→20:58)
--- NOTE | 2016-11-15 08:39 | GENMEDPROG ---
Chief Complaint: Respiratory arrest Subjective Note: No acute events overnight, resting comfortably this morning. Alert, follows commands but nonverbal currently. Later said 1 word to the nurse this morning. Notes Reviewed: Yes Events from last night noted and discussed with Clinical Staff Current Medication List: Reviewed Currently: Denies: Cough, Wheezing, Abdominal Pain, Fever/Chills, Chest Pain DVT Prophylaxis: Yes - Physical Examination Vital Signs and I&O: Last Vital Signs Temp 98.4 F 11/15/16 07:00 Pulse 75 11/15/16 08:17 Resp 16 11/15/16 07:00 BP 169/74 11/15/16 07:00 Pulse Ox 96 11/15/16 07:00 Oxygen Pulse Oxygen Saturation 96 O2 Device Nasal Cannula Oxygen Flow Rate 1 Fraction of Inspired Oxygen ( 40 FIO2) Intake & Output 11/13/16 11/14/16 11/15/16 11/16/16 06:59 06:59 06:59 06:59 Intake Total 3114 2466 Output Total 1175 1450 Balance 1939 1016 Patient's weight 86.001 kg 86.001 kg General: Alert, Mild distress HEENT: EOMI (Sclera white) Neck: Normal Trachea alignment, Normal inspection Lymphatics: Normal Respiratory: Rhonchi, Wheezes Cardiovascular: Regular rate, No Gallops,Rubs/Murmurs GI: Normal bowel sounds, Soft, Non tender (non distended) Extremities/Musculoskeletal: Other (Normal Tone). negative: Edema, Cyanosis Psych/Mental Status: Appropriate, Normal Affect, Cooperative. negative: Agitated, Anxious Lab/DI/Studies Reviewed: Laboratory Tests 11/15/16 11/15/16 05:12 05:12 WBC 16.9 H Hgb 11.2 L Potassium 4.3 BUN 38 H Creatinine 1.00 - Assessment (1) Acute respiratory failure with hypoxia Acute J96.01 - ACUTE RESPIRATORY FAILURE WITH HYPOXIA Comment/Plan: Respiratory failure due to severe aspiration leading to arrest. He was extubated yesterday afternoon. Continue empiric IV antibiotics Levaquin and Zosyn for aspiration. (2) Aspiration into airway Acute T17.908A - UNSP FB IN RESP TRACT, PART UNSP CAUSING OTH INJURY, INIT Qualifiers: Encounter type: initial encounter Qualified Code(s): T17.908A - Unspecified foreign body in respiratory tract, part unspecified causing other injury, initial encounter (3) Aspiration pneumonia Acute J69.0 - PNEUMONITIS DUE TO INHALATION OF FOOD AND VOMIT Qualifiers: Aspiration pneumonia type: unspecified Lung location: unspecified part of lung Comment/Plan: Patient will receive broad-spectrum antibiotics in the form of Zosyn Levaquin. Will monitor cultures and adjust antibiotics accordingly. (4) Cardiac arrest with successful resuscitation Acute I46.9 - CARDIAC ARREST, CAUSE UNSPECIFIED Comment/Plan: Currently hemodynamically stable. (5) Dementia Acute F03.90 - UNSPECIFIED DEMENTIA WITHOUT BEHAVIORAL DISTURBANCE Qualifiers: Dementia type: Alzheimer's disease Dementia behavioral disturbance: with behavioral disturbance Comment/Plan: Continue supportive care, he is awake and calm this morning. Not following commands, but is moving all extremities and looking around the room spontaneously. His baseline mental status is unclear. Dementia may be playing a role in his not following specific commands. (6) Hyperkalemia Acute E87.5 - HYPERKALEMIA Comment/Plan: Treated per hyperkalemia protocol, now improved and normal range this morning. (7) DM2 (diabetes mellitus, type 2) Chronic E11.9 - TYPE 2 DIABETES MELLITUS WITHOUT COMPLICATIONS Qualifiers: Diabetes mellitus complication status: with neurologic complications Comment/Plan: Monitor blood sugar, cover with sliding scale insulin (8) GERD (gastroesophageal reflux disease) Chronic K21.9 - GASTRO-ESOPHAGEAL REFLUX DISEASE WITHOUT ESOPHAGITIS Qualifiers: Esophagitis presence: without esophagitis Qualified Code(s): K21.9 - Gastro -esophageal reflux disease without esophagitis Comment/Plan: Continue PPI (9) Myasthenia gravis Chronic Comment/Plan: Patient normally on 10 mg p.o. daily of prednisone, was given very high dose IV steroids, will but this down today. (10) CVA (cerebral vascular accident) Acute I63.9 - CEREBRAL INFARCTION, UNSPECIFIED - Plan Overall this patient is improved and stable. Was seen by speech therapy yesterday, unable to follow commands dose failure evaluation. Currently he is being kept NPO, they will be re-evaluate today. In the meantime, he is being maintained on IV medications. Case Care Discussed with: Patient, Nursing Staff Total Time: 49
[2016-11-15] MEDS: PANTOPRAZOLE 40 MG VIAL IV SCH (12:52)
[2016-11-15] MEDS: CHOLECALCIFEROL 1000 UNITS TAB PO SCH (12:52)
[2016-11-15] MEDS: Levofloxacin 750 mg/150 ml D5W 750 MG/150 ML RTU IV SCH (13:36)
[2016-11-15] MEDS: ACETAMINOPHEN 325 MG/TAB TABLET PO PRN (18:16)
[2016-11-15] MEDS: ENOXAPARIN 40 MG/0.4 ML PFS SQ SCH (18:37)
[2016-11-15] MEDS: ATORVASTATIN 80 MG TAB PO SCH (20:54)
[2016-11-16 04:15] LABS: MPV 8.7 fL (7.4-10.4)
[2016-11-16 04:31] LABS: BLOOD UREA NITROGEN 30 MG/DL (9-20); CALCIUM 8.5 MG/DL (8.4-10.2); CALCULATED OSMOLALITY 295 MOs/Kg (270-290); CHLORIDE 111 mEq/L (98-107); GLUCOSE 237 MG/DL (70-99); SODIUM LEVEL 146 mEq/L (137-146)
[2016-11-16] MEDS: NS 1,000 ML IV SCH ×3 (05:30→18:08)
[2016-11-16] MEDS: REGULAR INSULIN 100 UNITS/ML - 3 ML VIAL SQ SCH ×4 (05:31→19:53)
[2016-11-16] MEDS: METHYLPREDNISOLONE 125 MG/2 ML VIAL IV SCH ×2 (05:33→18:08)
[2016-11-16] MEDS: PIPERACILLIN AND TAZOBACTAM 4.5 GM in D5W 100 ML IV SCH ×4 (05:34→23:34)
[2016-11-16] MEDS: MEMANTINE 5 MG TAB PO SCH ×2 (08:26→19:36)
[2016-11-16] MEDS: SERTRALINE HCL 50 MG TAB PO SCH (08:26)
[2016-11-16] MEDS: AZATHIOPRINE 50 MG TAB PO SCH ×4 (08:27→19:36)
[2016-11-16] MEDS: PYRIDOSTIGMINE 60 MG TAB PO SCH ×4 (08:27→19:36)
[2016-11-16] MEDS: DORZOLAMIDE/TIMOLOL OPHTH SOLN 10 ML OS SCH ×2 (08:27→19:57)
[2016-11-16] MEDS: BRIMONIDINE 0.2% OU SCH ×2 (08:27→19:52)
--- NOTE | 2016-11-16 10:19 | GENMEDPROG ---
Chief Complaint: Aspiration pneumonia Subjective Note: Doing well, he is slightly verbal this morning which is an improvement. No acute events overnight. Notes Reviewed: Yes Events from last night noted and discussed with Clinical Staff Current Medication List: Reviewed Currently: Denies: Cough, Wheezing, Abdominal Pain, Fever/Chills, Chest Pain DVT Prophylaxis: Yes - Physical Examination Vital Signs and I&O: Last Vital Signs Temp 98.1 F 11/16/16 08:00 Pulse 67 11/16/16 08:00 Resp 20 11/16/16 08:00 BP 190/70 H 11/16/16 08:00 Pulse Ox 92 11/16/16 08:00 Oxygen Pulse Oxygen Saturation 92 O2 Device Room Air Oxygen Flow Rate 1 Fraction of Inspired Oxygen ( 40 FIO2) Intake & Output 11/14/16 11/15/16 11/16/16 11/17/16 06:59 06:59 06:59 06:59 Intake Total 3114 2466 2150 Output Total 1175 1450 2350 Balance 1939 1016 -200 Patient's weight 86.001 kg 86.001 kg 81.675 kg General: Alert, Mild distress HEENT: EOMI (Sclera white) Neck: Normal Trachea alignment, Normal inspection Lymphatics: Normal Respiratory: Rhonchi, Wheezes Cardiovascular: Regular rate, No Gallops,Rubs/Murmurs GI: Normal bowel sounds, Soft, Non tender (non distended) Extremities/Musculoskeletal: Other (Normal Tone). negative: Edema, Cyanosis Psych/Mental Status: Appropriate, Normal Affect, Cooperative. negative: Agitated, Anxious, Sedated, Somnolent Lab/DI/Studies Reviewed: Laboratory Tests 11/16/16 11/16/16 11/16/16 03:40 03:40 05:29 Hgb 10.8 L Potassium 3.8 BUN 30 H Creatinine 1.00 POC Capillary Glucose 201 H - Assessment (1) Acute respiratory failure with hypoxia Acute J96.01 - ACUTE RESPIRATORY FAILURE WITH HYPOXIA Comment/Plan: Respiratory failure due to severe aspiration leading to arrest. He was extubated on November 14 and transferred out of the ICU the next day. Continue empiric IV antibiotics Levaquin and Zosyn for aspiration. (2) Aspiration into airway Acute T17.908A - UNSP FB IN RESP TRACT, PART UNSP CAUSING OTH INJURY, INIT Qualifiers: Encounter type: initial encounter Qualified Code(s): T17.908A - Unspecified foreign body in respiratory tract, part unspecified causing other injury, initial encounter (3) Aspiration pneumonia Acute J69.0 - PNEUMONITIS DUE TO INHALATION OF FOOD AND VOMIT Qualifiers: Aspiration pneumonia type: unspecified Lung location: unspecified part of lung Comment/Plan: Patient will receive broad-spectrum antibiotics in the form of Zosyn Levaquin. Will monitor cultures and adjust antibiotics accordingly. (4) Cardiac arrest with successful resuscitation Acute I46.9 - CARDIAC ARREST, CAUSE UNSPECIFIED Comment/Plan: Currently hemodynamically stable. (5) Dementia Acute F03.90 - UNSPECIFIED DEMENTIA WITHOUT BEHAVIORAL DISTURBANCE Qualifiers: Dementia type: Alzheimer's disease Dementia behavioral disturbance: with behavioral disturbance Comment/Plan: Continue supportive care, he is awake and calm this morning. Not following commands, but is moving all extremities and looking around the room spontaneously. His baseline mental status is unclear. Dementia may be playing a role in his not following specific commands. He is speaking this morning which is an improvement, but is quite slurred. (6) Hyperkalemia Acute E87.5 - HYPERKALEMIA Comment/Plan: Treated per hyperkalemia protocol, now improved and normal range this morning. (7) DM2 (diabetes mellitus, type 2) Chronic E11.9 - TYPE 2 DIABETES MELLITUS WITHOUT COMPLICATIONS Qualifiers: Diabetes mellitus complication status: with neurologic complications Comment/Plan: Monitor blood sugar, cover with sliding scale insulin (8) GERD (gastroesophageal reflux disease) Chronic K21.9 - GASTRO-ESOPHAGEAL REFLUX DISEASE WITHOUT ESOPHAGITIS Qualifiers: Esophagitis presence: without esophagitis Qualified Code(s): K21.9 - Gastro -esophageal reflux disease without esophagitis Comment/Plan: Continue PPI (9) Myasthenia gravis Chronic Comment/Plan: Patient normally on 10 mg p.o. daily of prednisone, was given very high dose IV steroids, will but this down today. (10) CVA (cerebral vascular accident) Acute I63.9 - CEREBRAL INFARCTION, UNSPECIFIED Total Time: 40
[2016-11-16] MEDS: METOPROLOL TARTRATE 25 MG TAB PO SCH ×2 (11:45→19:38)
[2016-11-16] MEDS: CHOLECALCIFEROL 1000 UNITS TAB PO SCH (13:12)
[2016-11-16] MEDS: PANTOPRAZOLE 40 MG VIAL IV SCH (13:13)
[2016-11-16] MEDS ORDERED: LORAZEPAM 0.5 MG TAB PO PRN (13:57)
[2016-11-16] MEDS ORDERED: VARIBAR NECTAR 40% BARIUM 240 ML ONE (13:58)
[2016-11-16] MEDS ORDERED: VARIBAR THIN 40% BARIUM 250 ML ONE (13:58)
[2016-11-16] MEDS ORDERED: VARIBAR HONEY 40% BARIUM 250 ML ONE (13:58)
[2016-11-16] MEDS ORDERED: GLARGINE INSULIN (LANTUS) 100 UNITS/ML PEN SQ SCH (15:00)
[2016-11-16] MEDS: Levofloxacin 750 mg/150 ml D5W 750 MG/150 ML RTU IV SCH (15:35)
[2016-11-16] MEDS: ENOXAPARIN 40 MG/0.4 ML PFS SQ SCH (18:08)
[2016-11-16] MEDS: CYCLOBENZAPRINE 10 MG TAB PO SCH (19:35)
[2016-11-16] MEDS: ATORVASTATIN 80 MG TAB PO SCH (19:36)
[2016-11-16] MEDS: DIVALPROEX SODIUM 250 MG PO SCH (19:41)
[2016-11-16] MEDS: TAMSULOSIN HCL 0.4 MG CAP PO SCH (19:41)
[2016-11-16] MEDS: GLARGINE INSULIN (LANTUS) 100 UNITS/ML PEN SQ SCH (19:54)
[2016-11-16] MEDS: hydrALAZINE 20 MG/ML VIAL IV PRN (19:55)
[2016-11-16] MEDS: IPRATROPIUM 0.02% 2.5 ML NEB NEB SCH (20:05)
[2016-11-17] MEDS: IPRATROPIUM 0.02% 2.5 ML NEB NEB SCH ×4 (02:10→19:51)
[2016-11-17] MEDS: REGULAR INSULIN 100 UNITS/ML - 3 ML VIAL SQ SCH ×4 (05:09→22:18)
[2016-11-17] MEDS: METHYLPREDNISOLONE 125 MG/2 ML VIAL IV SCH ×2 (05:12→17:04)
[2016-11-17] MEDS: NS 1,000 ML IV SCH ×3 (05:13→17:10)
[2016-11-17] MEDS: hydrALAZINE 20 MG/ML VIAL IV PRN ×2 (05:14→18:46)
[2016-11-17] MEDS: PIPERACILLIN AND TAZOBACTAM 4.5 GM in D5W 100 ML IV SCH ×3 (05:15→17:04)
[2016-11-17 05:37] LABS: BLOOD UREA NITROGEN 21 MG/DL (9-20); CALCIUM 8.1 MG/DL (8.4-10.2); CALCULATED OSMOLALITY 290 MOs/Kg (270-290); CHLORIDE 112 mEq/L (98-107); GLUCOSE 246 MG/DL (70-99); SODIUM LEVEL 145 mEq/L (137-146)
[2016-11-17] MEDS: FOLIC ACID 1 MG TAB PO SCH (08:39)
[2016-11-17] MEDS: METOPROLOL TARTRATE 25 MG TAB PO SCH ×2 (08:39→21:34)
[2016-11-17] MEDS: MEMANTINE 5 MG TAB PO SCH ×2 (08:39→21:34)
[2016-11-17] MEDS: TAMSULOSIN HCL 0.4 MG CAP PO SCH ×2 (08:39→21:33)
[2016-11-17] MEDS: SERTRALINE HCL 50 MG TAB PO SCH (08:39)
[2016-11-17] MEDS: PYRIDOSTIGMINE 60 MG TAB PO SCH ×4 (08:40→21:33)
[2016-11-17] MEDS: DORZOLAMIDE/TIMOLOL OPHTH SOLN 10 ML OS SCH ×2 (08:40→21:36)
[2016-11-17] MEDS: BRIMONIDINE 0.2% OU SCH ×2 (08:40→21:36)
[2016-11-17] MEDS: AZATHIOPRINE 50 MG TAB PO SCH ×4 (08:40→21:33)
[2016-11-17] MEDS ORDERED: TIOTROPIUM INH SCH (09:00)
--- NOTE | 2016-11-17 10:09 | GENMEDPROG ---
Chief Complaint: Respiratory arrest from aspiration Subjective Note: Doing well, no acute complaints. More talkative once again today. Currently: Denies: Cough, Wheezing, Abdominal Pain, Fever/Chills, Chest Pain DVT Prophylaxis: Yes - Physical Examination Vital Signs and I&O: Last Vital Signs Temp 98.1 F 11/17/16 07:13 Pulse 79 11/17/16 07:13 Resp 18 11/17/16 07:13 BP 153/65 11/17/16 07:13 Pulse Ox 95 11/17/16 07:13 Oxygen Pulse Oxygen Saturation 95 O2 Device Room Air Oxygen Flow Rate 1 Fraction of Inspired Oxygen ( 40 FIO2) Intake & Output 11/15/16 11/16/16 11/17/16 11/18/16 06:59 06:59 06:59 06:59 Intake Total 2466 2150 2746 Output Total 1450 2350 4650 Balance 0601 -176 -0187 Patient's weight 86.001 kg 81.675 kg 82.157 kg General: Alert, Mild distress HEENT: EOMI (Sclera white) Neck: Normal Trachea alignment, Normal inspection Lymphatics: Normal Respiratory: Rhonchi, Wheezes Cardiovascular: Regular rate, No Gallops,Rubs/Murmurs GI: Normal bowel sounds, Soft, Non tender (non distended) Extremities/Musculoskeletal: Other (Normal Tone). negative: Edema, Cyanosis Psych/Mental Status: Appropriate, Normal Affect, Cooperative. negative: Agitated, Anxious, Sedated, Somnolent Lab/DI/Studies Reviewed: Laboratory Tests 11/17/16 11/17/16 04:00 04:00 WBC 12.6 H Hgb 11.4 L Potassium 3.9 BUN 21 H Creatinine 0.80 - Assessment (1) Acute respiratory failure with hypoxia Acute J96.01 - ACUTE RESPIRATORY FAILURE WITH HYPOXIA Comment/Plan: Respiratory failure due to severe aspiration leading to arrest. He was extubated on November 14 and transferred out of the ICU the next day. Continue empiric IV antibiotics Levaquin and Zosyn for aspiration. Currently doing well on nasal cannula oxygen. (2) Aspiration into airway Acute T17.908A - UNSP FB IN RESP TRACT, PART UNSP CAUSING OTH INJURY, INIT Qualifiers: Encounter type: initial encounter Qualified Code(s): T17.908A - Unspecified foreign body in respiratory tract, part unspecified causing other injury, initial encounter (3) Aspiration pneumonia Acute J69.0 - PNEUMONITIS DUE TO INHALATION OF FOOD AND VOMIT Qualifiers: Aspiration pneumonia type: unspecified Lung location: unspecified part of lung Comment/Plan: Patient will receive broad-spectrum antibiotics in the form of Zosyn Levaquin. Will monitor cultures and adjust antibiotics accordingly. (4) Cardiac arrest with successful resuscitation Acute I46.9 - CARDIAC ARREST, CAUSE UNSPECIFIED Comment/Plan: Currently hemodynamically stable. (5) Dementia Acute F03.90 - UNSPECIFIED DEMENTIA WITHOUT BEHAVIORAL DISTURBANCE Qualifiers: Dementia type: Alzheimer's disease Dementia behavioral disturbance: with behavioral disturbance Comment/Plan: Continue supportive care, he is awake and calm this morning. Not following commands, but is moving all extremities and looking around the room spontaneously. His baseline mental status is unclear. Dementia may be playing a role in his not following specific commands. He is speaking this morning which is an improvement, but is quite slurred. (6) Hyperkalemia Acute E87.5 - HYPERKALEMIA Comment/Plan: Treated per hyperkalemia protocol, now improved and normal range this morning. (7) DM2 (diabetes mellitus, type 2) Chronic E11.9 - TYPE 2 DIABETES MELLITUS WITHOUT COMPLICATIONS Qualifiers: Diabetes mellitus complication status: with neurologic complications Comment/Plan: Monitor blood sugar, cover with sliding scale insulin (8) GERD (gastroesophageal reflux disease) Chronic K21.9 - GASTRO-ESOPHAGEAL REFLUX DISEASE WITHOUT ESOPHAGITIS Qualifiers: Esophagitis presence: without esophagitis Qualified Code(s): K21.9 - Gastro -esophageal reflux disease without esophagitis Comment/Plan: Continue PPI (9) Myasthenia gravis Chronic Comment/Plan: Patient normally on 10 mg p.o. daily of prednisone, was given very high dose IV steroids, will but this down today. (10) CVA (cerebral vascular accident) Acute I63.9 - CEREBRAL INFARCTION, UNSPECIFIED - Plan Continue present care. He is reaching maximal benefit of hospital therapy in the next 24-48 hours. Physical therapy recommends return to subacute nursing facility. Family does not want him to return to the prior facility, where in the process of attempting transfer to [facility] so that he can be eventually discharged to a [facility] associated nursing facility.
[2016-11-17] MEDS: PANTOPRAZOLE 40 MG VIAL IV SCH (12:23)
[2016-11-17] MEDS: CHOLECALCIFEROL 1000 UNITS TAB PO SCH (12:23)
[2016-11-17 13:06] VITALS: BMI 29.2
[2016-11-17] MEDS: Levofloxacin 750 mg/150 ml D5W 750 MG/150 ML RTU IV SCH (14:42)
[2016-11-17] MEDS: ENOXAPARIN 40 MG/0.4 ML PFS SQ SCH (17:04)
[2016-11-17] MEDS: ATORVASTATIN 80 MG TAB PO SCH (21:33)
[2016-11-17] MEDS: CYCLOBENZAPRINE 10 MG TAB PO SCH (21:34)
[2016-11-17] MEDS: DIVALPROEX SODIUM 250 MG PO SCH (21:35)
[2016-11-17] MEDS: GLARGINE INSULIN (LANTUS) 100 UNITS/ML PEN SQ SCH (22:17)
[2016-11-18] MEDS: PIPERACILLIN AND TAZOBACTAM 4.5 GM in D5W 100 ML IV SCH ×4 (00:19→16:45)
[2016-11-18] MEDS: IPRATROPIUM 0.02% 2.5 ML NEB NEB SCH ×4 (02:30→20:30)
[2016-11-18 04:57] LABS: MPV 8.5 fL (7.4-10.4)
[2016-11-18 05:06] LABS: BLOOD UREA NITROGEN 22 MG/DL (9-20); CALCIUM 8.2 MG/DL (8.4-10.2); CALCULATED OSMOLALITY 278 MOs/Kg (270-290); CHLORIDE 110 mEq/L (98-107); GLUCOSE 136 MG/DL (70-99); SODIUM LEVEL 142 mEq/L (137-146)
[2016-11-18] MEDS: NS 1,000 ML IV SCH ×2 (05:33→13:11)
[2016-11-18] MEDS: METHYLPREDNISOLONE 125 MG/2 ML VIAL IV SCH ×2 (05:33→16:44)
[2016-11-18] MEDS: REGULAR INSULIN 100 UNITS/ML - 3 ML VIAL SQ SCH ×4 (06:11→22:27)
[2016-11-18] MEDS: METOPROLOL TARTRATE 25 MG TAB PO SCH ×2 (08:11→22:30)
[2016-11-18] MEDS: BRIMONIDINE 0.2% OU SCH ×2 (08:12→22:29)
[2016-11-18] MEDS: SERTRALINE HCL 50 MG TAB PO SCH (08:13)
[2016-11-18] MEDS: MEMANTINE 5 MG TAB PO SCH ×2 (08:14→22:27)
[2016-11-18] MEDS: FOLIC ACID 1 MG TAB PO SCH (08:14)
[2016-11-18] MEDS: PYRIDOSTIGMINE 60 MG TAB PO SCH ×4 (08:14→22:27)
[2016-11-18] MEDS: TAMSULOSIN HCL 0.4 MG CAP PO SCH ×2 (08:14→22:26)
[2016-11-18] MEDS: AZATHIOPRINE 50 MG TAB PO SCH ×4 (08:14→22:27)
[2016-11-18] MEDS: DORZOLAMIDE/TIMOLOL OPHTH SOLN 10 ML OS SCH ×2 (08:15→22:28)
--- NOTE | 2016-11-18 08:28 | GENMEDPROG ---
Chief Complaint: ASPIRATION PNEUMONIA, RESP INSUFFICIENCY, S/P NSTEMI, DM-2, DEMENTIA, MYASTHENIA GRAVIS, S/P CVA Currently: Denies: Cough, Wheezing, Abdominal Pain, Fever/Chills, Chest Pain DVT Prophylaxis: Yes - Physical Examination Vital Signs and I&O: Last Vital Signs Temp 98.1 F 11/18/16 07:57 Pulse 70 11/18/16 07:57 Resp 18 11/18/16 07:57 BP 180/82 H 11/18/16 07:57 Pulse Ox 94 11/18/16 07:57 Oxygen Pulse Oxygen Saturation 94 O2 Device Room Air Oxygen Flow Rate 1 Fraction of Inspired Oxygen ( 40 FIO2) Intake & Output 11/15/16 11/16/16 11/17/16 11/18/16 23:59 23:59 23:59 23:59 Intake Total 2366 2155 3269 1138 Output Total 2200 3300 3950 750 Balance 614 -7390 -200 388 Patient's weight 86.001 kg 81.675 kg 82.157 kg 82.582 kg General: Alert, Cooperative, No acute distress HEENT: PERRLA, EOMI (Sclera white), Mucous membr. moist/pink (EDENTULOUS) Neck: Normal Trachea alignment, Normal inspection Lymphatics: Normal Respiratory: Normal - CTA, Diminished Cardiovascular: Regular rate, Normal S1, No Gallops,Rubs/Murmurs, Normal S2 GI: Normal bowel sounds, Soft, Non tender (non distended), No masses Extremities/Musculoskeletal: Normal pulses, DJD, FROM, Other (Normal Tone). negative: Edema, Cyanosis Skin: Warm,Dry and Intact, No breakdown Neurological: Normal speech, Strength at 5/5 X4 ext, Normal tone, Cranial nerves 3-12 NL, Drowsy Psych/Mental Status: Normal Affect, Cooperative, Confused, Disoriented. negative: Agitated, Anxious, Sedated, Somnolent Lab/DI/Studies Reviewed: Laboratory Tests 11/18/16 11/18/16 11/18/16 03:48 04:25 04:35 WBC 11.6 H Hgb 11.4 L Hct 33.4 L Plt Count 175 Sodium 142 Potassium 3.8 Chloride 110 H Carbon Dioxide 28 Anion Gap 8 BUN 22 H Creatinine 0.80 Estimated GFR (MDRD) > 60 Glucose 136 H POC Capillary Glucose 158 H Calculated Osmolality 278 Calcium 8.2 L 11/18/16 10:58 WBC Hgb Hct Plt Count Sodium Potassium Chloride Carbon Dioxide Anion Gap BUN Creatinine Estimated GFR (MDRD) Glucose POC Capillary Glucose 337 H Calculated Osmolality Calcium - Assessment (1) Acute respiratory failure with hypoxia Acute J96.01 - ACUTE RESPIRATORY FAILURE WITH HYPOXIA Comment/Plan: Respiratory failure due to severe aspiration leading to cardiac arrest. He was successfully resuscitated, extubated on November 14 and transferred out of the ICU the next day. Continued empiric IV antibiotics Levaquin and Zosyn for aspiration pneumonia. Currently doing well - has weaned to room air and is off O2. (2) Aspiration pneumonia Acute J69.0 - PNEUMONITIS DUE TO INHALATION OF FOOD AND VOMIT Qualifiers: Aspiration pneumonia type: unspecified Lung location: unspecified part of lung Comment/Plan: Patient has received 5 days of IV antibiotics in the form of Zosyn & Levaquin. Urine and blood cultures are negative to date, no sputum obtained. MRSA swab negative. Continue Levaquin PO for another 5 days. (3) Cardiac arrest with successful resuscitation Acute I46.9 - CARDIAC ARREST, CAUSE UNSPECIFIED Comment/Plan: Currently hemodynamically stable. (4) Dementia Acute F03.90 - UNSPECIFIED DEMENTIA WITHOUT BEHAVIORAL DISTURBANCE Qualifiers: Dementia type: Alzheimer's disease Dementia behavioral disturbance: with behavioral disturbance Comment/Plan: Continue supportive care, he is awake and calm this morning. He will awaken & follow commands, and is moving all extremities and looking around the room spontaneously. His baseline mental status is that of mild to moderate dementia. He is able to carry on a simple conversation. 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 Currently on 46 units of Lantus at bedtime. (6) Dysphagia Chronic R13.10 - DYSPHAGIA, UNSPECIFIED Qualifiers: Dysphagia type: oropharyngeal phase Qualified Code(s): R13.12 - Dysphagia, oropharyngeal phase Comment/Plan: Speech evaluation therapy shows persistent risk of aspiration (7) Myasthenia gravis Chronic Comment/Plan: Patient normally on 10 mg p.o. daily of prednisone, was given very high dose IV steroids in hospital, will wean this back down after discharge.
[2016-11-18] MEDS: CHOLECALCIFEROL 1000 UNITS TAB PO SCH (12:17)
[2016-11-18] MEDS: PANTOPRAZOLE 40 MG VIAL IV SCH (12:21)
--- NOTE | 2016-11-18 12:23 | PCM.DCS92 ---
- Final/Secondary Discharge Diagnosis (1) Acute respiratory failure with hypoxia Acute J96.01 - ACUTE RESPIRATORY FAILURE WITH HYPOXIA Present on Admission: Yes Comment: Respiratory failure due to severe aspiration leading to cardiac arrest. He was successfully resuscitated, extubated on November 14 and transferred out of the ICU the next day. Continued empiric IV antibiotics Levaquin and Zosyn for aspiration pneumonia. Currently doing well - has weaned to room air and is off O2. (2) Aspiration pneumonia Acute J69.0 - PNEUMONITIS DUE TO INHALATION OF FOOD AND VOMIT Present on Admission: Yes unspecified unspecified part of lung Comment: Patient has received 5 days of IV antibiotics in the form of Zosyn & Levaquin. Urine and blood cultures are negative to date, no sputum obtained. MRSA swab negative. Continue Levaquin PO for another 5 days. (3) Cardiac arrest with successful resuscitation Acute I46.9 - CARDIAC ARREST, CAUSE UNSPECIFIED Present on Admission: Yes Comment: Currently hemodynamically stable. (4) Dementia Acute F03.90 - UNSPECIFIED DEMENTIA WITHOUT BEHAVIORAL DISTURBANCE Present on Admission: Yes Alzheimer's disease with behavioral disturbance Comment: Continue supportive care, he is awake and calm this morning. He will awaken & follow commands, and is moving all extremities and looking around the room spontaneously. His baseline mental status is that of mild to moderate dementia. He is able to carry on a simple conversation. (5) DM2 (diabetes mellitus, type 2) Chronic E11.9 - TYPE 2 DIABETES MELLITUS WITHOUT COMPLICATIONS Present on Admission: Yes with neurologic complications with polyneuropathy with middle or intermediate school principal use E11.42 - Type 2 diabetes mellitus with diabetic polyneuropathy; Z79.4 - middle or intermediate school principal (current) use of insulin Comment: Monitor blood sugar, cover with sliding scale insulin. Currently on 46 units of Lantus at bedtime. (6) Dysphagia Chronic R13.10 - DYSPHAGIA, UNSPECIFIED Present on Admission: Yes oropharyngeal phase R13.12 - Dysphagia, oropharyngeal phase Comment: Speech evaluation therapy shows persistent risk of aspiration (7) Myasthenia gravis Chronic Present on Admission: Yes Comment: Patient normally on 10 mg p.o. daily of prednisone, was given very high dose IV steroids in hospital, will wean this back down after discharge. Discharge Disposition: Alf Facility Discharge Condition: Improved Cognitive Discharge Status: Cognitive deficits prevent decision making for safety. Fuctional Discharge Status: Walker Assistance, Fall Risk, Inability to drive due to severe medical illness, Deconditioning, Unable to leave home without assistance New Prescriptions: Levofloxacin [Levaquin] 750 mg PO DAILY #5 tablet Prednisone [Deltasone, Orasone] 10 mg PO DAILY #60 tablet Discharge Home Medication List Folic Acid 1 mg PO QAM 03/05/14 [History Confirmed 11/14/16 Last Taken 11/12/16 08:00] Sertraline HCl [Zoloft] 75 mg PO QAM 03/05/14 [History Confirmed 11/14/16 Last Taken 11/12/16 08:00] Aspirin (Enteric Coated) [Halfprin] 81 mg PO DAILY 03/07/14 [History Confirmed 11/14/16 Last Taken 11/12/16 08:00] Calcium Carbonate + Vitamin D [Oscal with Vitamin D] 500 mg PO BID 03/07/14 [ History Confirmed 11/14/16 Last Taken 11/12/16 20:00] Divalproex Sodium [DEPAKOTE-ER extend release] 500 mg PO QHS 03/07/14 [History Confirmed 11/14/16 Last Taken 11/12/16 20:00] Metoprolol Tartrate [Lopressor] 6.25 mg PO BID 03/07/14 [History Confirmed 03/01 Last Taken 03/01/16] Pyridostigmine Maramec [Mestinon] 60 mg PO QID 03/07/14 [History Confirmed 11/14 Last Taken 11/12/16 22:00] Atorvastatin Calcium [Lipitor] 10 mg PO HS 12/16/14 [History Confirmed 11/14/16 Last Taken 11/12/16 20:00] Brimonidine Tartrate 1 drop OU BID 12/16/14 [History Confirmed 11/14/16 Last Taken 11/12/16 20:00] Cyclobenzaprine HCl [Flexeril] 10 mg PO HS 12/16/14 [History Confirmed 11/14/16 Last Taken 11/12/16 20:00] Dorzolamide HCl/Timolol Maleat [Dorzolamide-Timolol Eye Drops] 1 drop OU BID 07/22 [History Confirmed 11/14/16 Last Taken 11/12/16 20:00] [place]-3 Fatty Acids/Fish Oil [Fish Oil 1,000 mg Softgel] 2 cap PO TID 12/16/14 [ History Confirmed 11/14/16 Last Taken 11/12/16 08:00] Tiotropium [Spiriva Handihaler] 1 puff INH DAILY 12/16/14 [History Confirmed 06/23 Last Taken 11/12/16 08:00] Cholecalciferol (Vitamin D3) [Vitamin D3] 2,000 unit PO DAILY 09/25/15 [History Confirmed 11/14/16 Last Taken 11/12/16 08:00] Memantine HCl [Namenda] 5 mg PO BID 09/25/15 [History Confirmed 11/14/16 Last Taken 11/12/16 20:00] Tamsulosin HCl [Flomax] 0.4 mg PO BID 09/25/15 [History Confirmed 11/14/16 Last Taken 11/12/16 20:00] Bethanechol [Urecholine] 25 mg PO BID 03/01/16 [History Confirmed 11/14/16 Last Taken 11/12/16 20:00] Insulin Regular, Human [Novolin R] 0 unit SQ .SLIDING SCALE 03/01/16 [History Confirmed 11/14/16 Last Taken 11/12/16 16:30] Loperamide HCl [Loperamide] 2 mg PO QID PRN 03/01/16 [History Confirmed Last Taken Unknown] Lorazepam 0.5 mg PO Q4H PRN 03/01/16 [History Confirmed 11/14/16 Last Taken 12/24] Trazodone HCl 50 mg PO QHS 03/01/16 [History Confirmed 11/14/16 Last Taken 11/12 20:00] Azathioprine [Imuran] 50 mg PO QID #120 11/18/16 [Rx Confirmed 11/14/16 Last Taken 11/12/16 22:00] Insulin Glargine [Lantus Pen] 46 units SQ QHS #1 11/18/16 [Rx Confirmed Last Taken 11/12/16 08:00] Levofloxacin [Levaquin] 750 mg PO DAILY #5 tablet 11/18/16 [Rx Last Taken Unknown] Prednisone [Deltasone, Orasone] 10 mg PO DAILY #60 tablet 11/18/16 [Rx Last Taken Unknown] O2 Device: Room Air Diet at Discharge: Heart Healthy, Diabetic, 2200 Calorie, Other (Pureed solids, nectar thick liquids due to high risk of aspiration) Activity: As Tolerated Call Office For: Worsening Symptoms, Fever over 101 F, Pain Uncontrolled By Meds Discontinue use of:: Alcohol, All Types of Tobacco - DC Summary Notes Hospital Course Note:: Discharge summary on patient named VIET SANTIAGO admitted to [facility] on 11/13/16 by Remington Bernardo MD. Date of discharge is []. Viet Santiago is a 71 year old man who resides in a halfway facility. He was eating breakfast, and choked on a sausage link and suffered a respiratory arrest. EMS was activated. The patient was successfully resuscitated at the scene, and transported to the ED, but then suffered a cardiac arrest and was again intubated and resuscitated. He was placed on a ventilator after which his hemodynamic began to improve. He was extubated on November 14, and transferred out of the ICU the next day. Patient has received 5 days of IV antibiotics in the form of Zosyn & Levaquin. Urine and blood cultures are negative to date, no sputum obtained. MRSA swab negative. Continue Levaquin PO for another 5 days. Patient normally on 10 mg p.o. daily of prednisone, was given very high dose IV steroids in hospital, will wean this back down after discharge. He is a diabetic, and will need to be on a diabetic diet, monitor his blood sugar, and cover with sliding scale insulin. Currently he is on 46 units of Lantus at bedtime. His baseline mental status is that of mild to moderate dementia. He is able to carry on a simple conversation. At this time he is stable for discharge back to the senior care. Code: 02308 (>30min.) - Physical Exam Vital Signs: Last Vital Signs Temp 98.4 F 11/18/16 11:46 Pulse 65 11/18/16 11:46 Resp 20 11/18/16 11:46 BP 150/63 11/18/16 11:46 Pulse Ox 98 11/18/16 11:46 Oxygen Pulse Oxygen Saturation 98 O2 Device Room Air Oxygen Flow Rate 1 Fraction of Inspired Oxygen ( 40 FIO2) Constitutional: No apparent distress, Alert, Confused Oriented to: Person, Place - HEENT Head: Normal Eye: Normal Oropharynx: Normal Tympanic Membrane: Dull ENT EAC: Normal Nose: No Symptoms Reported - Respiratory/Cardiovascular Respiratory: Normal - CTA, Diminished Cardiovascular: Normal - GI Auscultation: Normal Palpation: Normal Tenderness: Non tender Rectal Exam: Deferred - Musculoskeletal Back: Normal Extremities: Normal - Integumentary Skin: Warm, Dry Lymphatics: Normal - Neurologic Memory Impaired: Short-term Motor Function: Normal Cranial Nerve: Normal Cerebellar: Normal Mood Description: Anxious Thought: Rambling Conversation Perception: Normal
[2016-11-18] MEDS: Levofloxacin 750 mg/150 ml D5W 750 MG/150 ML RTU IV SCH (13:36)
[2016-11-18 16:17] VITALS: TEMP 98
[2016-11-18] MEDS: ENOXAPARIN 40 MG/0.4 ML PFS SQ SCH (16:44)
[2016-11-18] MEDS: DIVALPROEX SODIUM 250 MG PO SCH (22:26)
[2016-11-18] MEDS: CYCLOBENZAPRINE 10 MG TAB PO SCH (22:27)
[2016-11-18] MEDS: ATORVASTATIN 80 MG TAB PO SCH (22:27)
[2016-11-18] MEDS: GLARGINE INSULIN (LANTUS) 100 UNITS/ML PEN SQ SCH (22:28)
[2016-11-19] MEDS: PIPERACILLIN AND TAZOBACTAM 4.5 GM in D5W 100 ML IV SCH ×2 (01:06→05:22)
[2016-11-19] MEDS: IPRATROPIUM 0.02% 2.5 ML NEB NEB SCH ×2 (02:20→08:12)
[2016-11-19 04:51] LABS: MPV 8.6 fL (7.4-10.4)
[2016-11-19 05:08] LABS: BLOOD UREA NITROGEN 19 MG/DL (9-20); CALCIUM 7.8 MG/DL (8.4-10.2); CALCULATED OSMOLALITY 274 MOs/Kg (270-290); CHLORIDE 108 mEq/L (98-107); GLUCOSE 204 MG/DL (70-99); SODIUM LEVEL 138 mEq/L (137-146)
[2016-11-19] MEDS: METHYLPREDNISOLONE 125 MG/2 ML VIAL IV SCH (05:22)
[2016-11-19] MEDS: REGULAR INSULIN 100 UNITS/ML - 3 ML VIAL SQ SCH (07:05)
[2016-11-19] MEDS: TAMSULOSIN HCL 0.4 MG CAP PO SCH (07:23)
[2016-11-19] MEDS: AZATHIOPRINE 50 MG TAB PO SCH (07:23)
[2016-11-19] MEDS: SERTRALINE HCL 50 MG TAB PO SCH (07:23)
[2016-11-19] MEDS: METOPROLOL TARTRATE 25 MG TAB PO SCH (07:23)
[2016-11-19] MEDS: MEMANTINE 5 MG TAB PO SCH (07:23)
[2016-11-19] MEDS: FOLIC ACID 1 MG TAB PO SCH (07:23)
[2016-11-19] MEDS: PYRIDOSTIGMINE 60 MG TAB PO SCH (07:23)
[2016-11-19] MEDS: BRIMONIDINE 0.2% OU SCH (07:24)
[2016-11-19] MEDS: DORZOLAMIDE/TIMOLOL OPHTH SOLN 10 ML OS SCH (07:24)
[2016-11-19 08:00] VITALS: BP 155/80; TEMP 98.4
[2016-11-19 09:12] VITALS: PULSE 71
== END 2016-11-19 09:42 | disposition hospice, home (50) | DRG 208 ==
LOC: ED 08:33 → ICU 10:50 → PCU 11-15 20:46
PROVIDERS: ADMIT Internal Medicine; ATTEND Family Medicine
PROC: 0BH17EZ Insertion of Endotracheal Airway into Trachea, Via Natural or Artificial Opening (ICD-10-PCS; principal; 2016-11-13)
PROC: 5A1945Z Respiratory Ventilation, 24-96 Consecutive Hours (ICD-10-PCS; 2016-11-13)
PROC: 039C3ZZ Drainage of Left Radial Artery, Percutaneous Approach (ICD-10-PCS; 2016-11-13)
DX: J96.01 Acute respiratory failure with hypoxia (principal); I46.9 Cardiac arrest, cause unspecified; I63.9 Cerebral infarction, unspecified; J69.0 Pneumonitis due to inhalation of food and vomit; E87.5 Hyperkalemia; R13.12 Dysphagia, oropharyngeal phase; G30.9 Alzheimer's disease, unspecified; F02.81 Dementia in other diseases classified elsewhere, unspecified severity, with behavioral disturbance; G70.00 Myasthenia gravis without (acute) exacerbation; K21.9 Gastro-esophageal reflux disease without esophagitis; Z79.4 Long term (current) use of insulin; J44.9 Chronic obstructive pulmonary disease, unspecified; F01.50 Vascular dementia, unspecified severity, without behavioral disturbance, psychotic disturbance, mood disturbance, and anxiety; Z79.52 Long term (current) use of systemic steroids; Z79.899 Other long term (current) drug therapy; Z87.891 Personal history of nicotine dependence; Z79.82 Long term (current) use of aspirin; T17.928A Food in respiratory tract, part unspecified causing other injury, initial encounter; I10 Essential (primary) hypertension; I25.10 Atherosclerotic heart disease of native coronary artery without angina pectoris; Z95.1 Presence of aortocoronary bypass graft; I51.89 Other ill-defined heart diseases; X58.XXXA Exposure to other specified factors, initial encounter; I25.2 Old myocardial infarction; E11.42 Type 2 diabetes mellitus with diabetic polyneuropathy; Z86.711 Personal history of pulmonary embolism
CPT/HCPCS: 31500; 31720; 36600; 70450; 71010; 80048; 80053; 81001; 82803; 82962; 83605; 83735; 84443; 84484; 85007; 85025; 85027; 85610; 85730; 87040; 87086; 87641; 93005; 94003; 94640; 94770; 96361; 96365; 96372; 96375; 97162; 99284; E0710; J0330; J0360; J0610; J1650; J1956; J2250; J2543; J2930; J3010; J3475; J3490; J7030; J7060; S0164